=== PATIENT | male | born 1985 | race Caucasian/White ===

== ENCOUNTER 2017-01-20 16:36 | Emergency (ER) | payer SELFPAY ==
[~2017-01-20] VITALS: Ht 172.7 cm; Wt 145.5 kg
[2017-01-20 17:24] LABS: EOS # 0.1 (0.04-0.40); EOS % 0.5 % (0.0-4.0); HEMOGLOBIN 16.4 g/dL (13.5-18.0); LYMPH# 4.3 (1.50-4.00); MEAN CELL VOLUME 86 fl (78-100); MEAN CORPUSCULAR HEMOGLOBIN 30 pg (27-31); MEAN CORPUSCULAR HGB CONC 35 g/dL (33-37); PLATELET COUNT 338 K/mm3 (130-400); RED BLOOD COUNT 5.48 M/mm3 (4.20-5.60); RED CELL DISTRIBUTION WIDTH 12.1 % (11.5-14.5); WHITE BLOOD COUNT 15.1 K/mm3 (4.8-10.8)
[2017-01-20 17:34] LABS: NEU # 9.6 (1.40-6.50)
[2017-01-20 17:36] LABS: ALBUMIN 4.7 g/dL (3.5-5.0); BUN/CREATININE RATIO 12.1 (6.0-26.0); CALCIUM 10.2 mg/dL (8.4-10.2); POTASSIUM 3.8 mmol/L (3.6-5.0); TOTAL BILIRUBIN 0.7 mg/dL (0.2-1.3); TOTAL PROTEIN 7.9 g/dL (6.3-8.2)
[2017-01-20 17:37] LABS: URINE COLOR BLOODY
[2017-01-20 17:38] LABS: URINE GLUCOSE NEGATIVE (NEGATIVE); URINE KETONE NEGATIVE (NEGATIVE); URINE PROTEIN(semi-quant) 2+ mg/dL (NEGATIVE)
[2017-01-20 17:39] LABS: URINE BLOOD 250 ery/uL (NEGATIVE); URINE UROBILINOGEN NORMAL (NORMAL)
[2017-01-20 17:40] LABS: URINE APPEARANCE BLOODY; URINE MUCUS PRESENT (NOT PRESENT)
[2017-01-20] MEDS ORDERED: NORCO 325 MG-51 TA1 PO (18:26)
[2017-01-20 18:42] VITALS: BP 161/101
== END 2017-01-20 18:40 | disposition home or self-care (01) ==
LOC: ED 16:36
PROVIDERS: Physician Assistant
DX: N13.2 Hydronephrosis with renal and ureteral calculous obstruction (principal); R80.9 Proteinuria, unspecified
CPT/HCPCS: J1885; J2405; J7030